=== PATIENT | male | born 1980 | race Caucasian/White ===

== ENCOUNTER 2017-09-09 10:10 | Emergency (ER) | payer BC ==
[2017-09-09] MEDS ORDERED: Aspirin 81 MG Tab.Chew ONE (10:20)
[2017-09-09] MEDS ORDERED: Sodium Chloride 0.9% 10 ML Syringe FLUSH PRN (10:23)
[2017-09-09] MEDS ORDERED: Nitroglycerin 0.4 MG Tab.SL ONE (10:24)
--- NOTE | 2017-09-09 10:26 | EDM.PDOC ---
ED HPI GENERAL MEDICAL PROBLEM - General Chief Complaint: Chest Pain Stated Complaint: CHEST PAIN Time Seen by Provider: 09/09/17 10:20 Source of Information: Reports: Patient, RN Notes Reviewed History Limitations: Reports: No Limitations - History of Present Illness INITIAL COMMENTS - FREE TEXT/NARRATIVE: 37-year-old gentleman presents to emergency department today complaint of chest pain, he states the pain started early today sudden onset he has no cardiac history himself remote history with his grandfather, no tobacco use he feels short of breath no nausea no diaphoresis Chest Pain Score (Numeric/FACES): 5 - Related Data Allergies Allergy/AdvReac Type Severity Reaction Status Date / Time No Known Allergies Allergy Verified 09/18/13 18:21 Home Meds: Home Meds Azelastine [Astelin Nasal Soln] 1 spray TOP DAILY 09/18/13 [History] Cetirizine [ZyrTEC] 10 mg PO DAILY 09/09/17 [History] Fluticasone Propionate [Flonase] 1 spray FLORENCIA ASDIRECTED 09/09/17 [History] Past Medical History - Past Health History Medical/Surgical History: Denies Medical/Surgical History Social & Family History - Tobacco Use Smoking Status *Q: Never Smoker - Alcohol Use Days Per Week of Alcohol Use: 0 - Recreational Drug Use Recreational Drug Use: No ED ROS GENERAL - Review of Systems Review Of Systems: See Below Constitutional: Reports: No Symptoms HEENT: Reports: No Symptoms Respiratory: Reports: Shortness of Breath Cardiovascular: Reports: Chest Pain GI/Abdominal: Reports: No Symptoms : Reports: No Symptoms Musculoskeletal: Reports: No Symptoms Skin: Reports: No Symptoms Neurological: Reports: No Symptoms ED EXAM, GENERAL - Physical Exam Exam: See Below Free Text/Narrative:: General: Male moderate discomfort secondary to pain, alert and oriented x3 HEENT : head is atraumatic normocephalic, eyes pupils equal round reactive to light, sclera clear no conjunctivitis appreciated. Ears tympanic membranes clear and urena landmarks and light reflex are present bilaterally canals are clear. Nose no septal deviation, nares are clear, no blood present. Mouth mucosa is moist and pink no erythema or exudate noted in soft palate, tongue is midline uvula is midline, dentition is intact. Neck: Supple no thyromegaly no tracheal deviation. Nodes: Cervical nodes subclavicular nodes nontender no palpable lymphadenopathy noted. Lungs: clear to auscultation bilaterally with symmetrical respirations, no adventitious noise appreciated. CV: Regular rate and rhythm S1 and S2 appreciated no murmurs rubs or gallops noted. Abdomen: Soft, nontender, no palpable masses or organomegaly appreciated, no distention no guarding bowel sounds are present, . Neuro: Cranial nerves II through XII grossly intact Skin: Warm and dry, intact Extremities: No lower extremity edema appreciated, pedal pulse is +2. Course - Vital Signs Last Recorded V/S: Last Vital Signs Temp 98.1 F 09/09/17 10:29 Pulse 70 09/09/17 12:15 Resp 12 09/09/17 12:15 BP 135/79 09/09/17 12:15 Pulse Ox 99 09/09/17 12:15 - Orders/Labs/Meds Orders: Active Orders 24 hr Category Date Time Status Cardiac Monitoring [RC] .As Directed Care 09/09/17 10:23 Active EKG Documentation Completion [RC] ASDIRECTED Care 09/09/17 10:24 Active Peripheral IV Care [RC] . DIRECTED Care 09/09/17 10:24 Active Sodium Chloride 0.9% [Saline Flush] Med 09/09/17 10:23 Active 10 ml FLUSH ASDIRECTED PRN Peripheral IV Insertion Adult [OM.PC] Stat Oth 09/09/17 10:23 Ordered Saline Lock Insert [OM.PC] Stat Oth 09/09/17 10:23 Ordered EKG 12 Lead [EK] Stat Ther 09/09/17 10:23 Ordered Medication Orders Sodium Chloride (Saline Flush) 10 ml FLUSH ASDIRECTED PRN PRN Reason: Keep Vein Open Last Admin: 09/09/17 10:28 Dose: 10 ml Labs: Laboratory Tests 09/09/17 09/09/17 09/09/17 Range/Units 10:28 10:28 12:30 WBC 6.9 (4.5-11.0) K/uL RBC 5.44 (4.30-5.90) M/uL Hgb 16.4 H (12.0-15.0) g/dL Hct 47.0 (40.0-54.0) % MCV 86 (80-98) fL MCH 30 (27-31) pg MCHC 35 (32-36) % Plt Count 230 (150-400) K/uL Neut % (Auto) 67 H (36-66) % Lymph % (Auto) 20 L (24-44) % [place] % (Auto) 11 H (2-6) % Eos % (Auto) 2 (2-4) % Baso % (Auto) 1 (0-1) % Sodium 140 (140-148) mmol/L Potassium 3.5 L (3.6-5.2) mmol/L Chloride 104 (100-108) mmol/L Carbon Dioxide 22 (21-32) mmol/L Anion Gap 17.5 H (5.0-14.0) mmol/L BUN 21 H (7-18) mg/dL Creatinine 1.1 (0.8-1.3) mg/dL Est Cr Clr Drug Dosing 101.89 mL/min Estimated GFR (MDRD) > 60 (>60) Glucose 156 H (74-106) mg/dL Calcium 9.6 (8.5-10.1) mg/dL Total Bilirubin 0.5 (0.2-1.0) mg/dL AST 30 (15-37) U/L ALT 63 (12-78) U/L Alkaline Phosphatase 89 (46-116) U/L CK-MB (CK-2) 0.9 (0-3.6) mg/mL Troponin I < 0.017 < 0.017 (0.000-0.056) ng/mL Total Protein 7.4 (6.4-8.2) g/dL Albumin 4.5 (3.4-5.0) g/dL Globulin 2.9 (2.3-3.5) g/dL Albumin/Globulin Ratio 1.6 (1.2-2.2) Meds: Medications Generic Name Dose Route Start Last Admin Trade Name Freq PRN Reason Stop Dose Admin Sodium Chloride 10 ml 09/09/17 10:23 09/09/17 10:28 Saline Flush FLUSH 10 ml ASDIRECTED PRN Administration Keep Vein Open Discontinued Medications Generic Name Dose Route Start Last Admin Trade Name Freq PRN Reason Stop Dose Admin Aspirin Confirm 09/09/17 10:20 09/09/17 11:00 Aspirin Administered 09/09/17 10:21 Not Given Dose 324 mg .ROUTE .STK-MED ONE Aspirin 324 mg 09/09/17 10:59 09/09/17 11:01 Aspirin PO 09/09/17 11:00 324 mg ONETIME ONE Administration Nitroglycerin Confirm 09/09/17 10:24 09/09/17 11:00 Nitrostat Administered 09/09/17 10:25 Not Given Dose 0.4 mg .ROUTE .STK-MED ONE Nitroglycerin 0.4 mg 09/09/17 10:59 09/09/17 11:01 Nitrostat SL 09/09/17 11:00 0.4 mg ONETIME ONE Administration Departure - Departure Time of Disposition: 13:35 Disposition: Home, Self-Care 01 Condition: Good Clinical Impression: Atypical chest pain Referrals: PCP,None [Primary Care Provider] - Forms: ED Department Discharge Additional Instructions: Use Ativan as needed when symptoms arise, Please followup with your primary care provider in 3-5 days if not better, please call return to the emergency department with worsening of symptoms. - My Orders Last 24 Hours: My Active Orders 09/09/17 10:23 Cardiac Monitoring [RC] .As Directed Sodium Chloride 0.9% [Saline Flush] 10 ml FLUSH ASDIRECTED PRN Peripheral IV Insertion Adult [OM.PC] Stat Saline Lock Insert [OM.PC] Stat EKG 12 Lead [EK] Stat 09/09/17 10:24 EKG Documentation Completion [RC] ASDIRECTED Peripheral IV Care [RC] . DIRECTED - Assessment/Plan Last 24 Hours: My Active Orders 09/09/17 10:23 Cardiac Monitoring [RC] .As Directed Sodium Chloride 0.9% [Saline Flush] 10 ml FLUSH ASDIRECTED PRN Peripheral IV Insertion Adult [OM.PC] Stat Saline Lock Insert [OM.PC] Stat EKG 12 Lead [EK] Stat 09/09/17 10:24 EKG Documentation Completion [RC] ASDIRECTED Peripheral IV Care [RC] . DIRECTED Plan: Assessment Acuity = acute Site and laterality = probable panic attack Etiology = secondary to stress at work Manifestations = none Location of injury = Home Lab values = CBC, CMP, troponin negative 2 initial EKG does demonstrate global ST changes concern for pericarditis and borderline left axis deviation no old EKGs available for comparison, chest x-ray negative per radiology Plan I did review lab work EKG results with him he had significant relief with 1 nitroglycerin felt he really has returned to normal baseline we did observe him in the emergency department for several hours, no change on the monitor was noted he remained asymptomatic he did admit to being under a lot of stress at work, therefore I'm suspicious this was a panic attack, prescription written for Ativan 1 mg by mouth twice a day when necessary #10 I'm follow-up with his primary care in 5-7 days for reevaluation This note was dictated using [employer] voice recognition software please call with any questions on syntax or junior.
--- NOTE | 2017-09-09 10:47 | CR ---
Chest 1V Frontal HISTORY: Chest Pain COMPARISON: None FINDINGS: Portable chest, 1027 hours Lungs appear clear and normally aerated. Cardiomediastinal silhouette is within normal limits. No vas cular redistribution or pleural fluid can be seen. Bony structures and soft tissues are unremarkable. IMPRESSION: No acute chest abnormality identified.
[2017-09-09] MEDS ORDERED: Aspirin 81 MG Tab.Chew PO ONE (10:59)
[2017-09-09] MEDS ORDERED: Nitroglycerin 0.4 MG Tab.SL SL ONE (10:59)
== END 2017-09-09 13:46 | disposition home or self-care (01) ==
LOC: JP.ED 10:10
DX: R07.89 Other chest pain (principal); Z79.899 Other long term (current) drug therapy
CPT/HCPCS: 36415; 71045; 80053; 82553; 84484; 85025; 93005; 99285; A9270; J7050

== ENCOUNTER 2018-12-17 10:48 | Emergency (ER) | payer BC ==
--- NOTE | 2018-12-17 11:44 | EDM.PDOC ---
ED HPI GENERAL MEDICAL PROBLEM - General Chief Complaint: Abdominal Pain Stated Complaint: ILL HAD X-RAY Time Seen by Provider: 12/17/18 11:15 Source of Information: Reports: Patient History Limitations: Reports: No Limitations - History of Present Illness INITIAL COMMENTS - FREE TEXT/NARRATIVE: 38-year-old healthy male with left lower quadrant pain for the past 2 days. Increasing in intensity since 3 AM, developed peritoneal irritation. Also a low- grade fever. Normal bowel movement this morning did not change his pain. No urinary symptoms, no history of abdominal surgeries. He was evaluated at the clinic initially, labs look reassuring, white count normal, two-view x-ray normal but his pain was worsening so he was sent to the emergency room for further evaluation, namely a CT scan. Patient arrived uncomfortable with peritoneal irritation in the lower abdomen, felt better sitting up. Location: Reports: Abdomen Worsens with: Reports: Movement Associated Symptoms: Denies: Chest Pain, Cough, Fever/Chills, Malaise, Nausea/ Vomiting, Shortness of Breath, Weakness Left Lower Abdomen Pain Score (Numeric/FACES): 7 - Related Data Allergies Allergy/AdvReac Type Severity Reaction Status Date / Time No Known Allergies Allergy Verified 12/17/18 11:16 Home Meds: Home Meds Azelastine [Astelin Nasal Soln] 1 spray TOP DAILY 09/18/13 [History] Cetirizine [ZyrTEC] 10 mg PO DAILY 09/09/17 [History] Fluticasone Propionate [Flonase] 1 spray FLORENCIA ASDIRECTED 09/09/17 [History] Escitalopram Oxalate 20 mg PO DAILY 12/17/18 [History] traZODone HCl [Trazodone HCl] 50 mg PO BEDTIME 12/17/18 [History] Past Medical History - Past Health History Medical/Surgical History: Denies Medical/Surgical History HEENT History: Reports: Allergic Rhinitis Social & Family History - Tobacco Use Smoking Status *Q: Never Smoker - Caffeine Use Caffeine Use: Reports: Soda - Recreational Drug Use Recreational Drug Use: No ED ROS GENERAL - Review of Systems Review Of Systems: See Below Constitutional: Denies: Fever, Chills HEENT: Reports: No Symptoms Respiratory: Reports: No Symptoms Cardiovascular: Reports: Dyspnea on Exertion GI/Abdominal: Reports: Abdominal Pain. Denies: Constipation, Diarrhea, Vomiting : Reports: No Symptoms Skin: Reports: No Symptoms ED EXAM, GI/ABD - Physical Exam Exam: See Below Exam Limited By: No Limitations General Appearance: Alert, No Apparent Distress (Patient looks uncomfortable but not distressed) Eyes: Bilateral: Normal Appearance (No jaundice) Head: Atraumatic Respiratory/Chest: No Respiratory Distress, Lungs Clear Cardiovascular: Regular Rate, Rhythm GI/Abdominal Exam: Soft, Guarding (Significant guarding and rebound tenderness is present in the left lower quadrant), Rebound Course - Vital Signs Last Recorded V/S: Last Vital Signs Temp 99.3 F 12/17/18 11:10 Pulse 67 12/17/18 11:06 Resp 17 12/17/18 11:10 BP 139/73 12/17/18 11:10 Pulse Ox 96 12/17/18 11:10 - Orders/Labs/Meds Meds: Medications Discontinued Medications Generic Name Dose Route Start Last Admin Trade Name Freq PRN Reason Stop Dose Admin Ketorolac Tromethamine 60 mg 12/17/18 13:19 12/17/18 13:27 Toradol IM 12/17/18 13:20 60 mg ONETIME ONE Administration - Re-Assessments/Exams Free Text/Narrative Re-Assessment/Exam: 12/17/18 11:43 Clinic records and laboratory reviewed. Patient was sent for a abdomen and pelvis CT scan without contrast. 12/17/18 13:09 CT confirmed likely epiploic appendigitis in the left lower quadrant. Patient was given 60 mg of IM Toradol. He was discharged and encouraged to take an anti- inflammatory on a regular basis for the next several days and increase activity as tolerated. Departure - Departure Time of Disposition: 13:34 Disposition: Home, Self-Care 01 Condition: Good Clinical Impression: Abdominal pain Qualifiers: Abdominal location: left lower quadrant Qualified Code(s): R10.32 - Left lower quadrant pain - Discharge Information Instructions: Abdominal Pain, Adult, [id number] Referrals: PCP,None [Primary Care Provider] - Forms: ED Department Discharge Care Plan Goals: Increase activity as tolerated, diet as tolerated, and a regular dose of anti- inflammatory will be beneficial. Return for reevaluation if fever spikes, persistent nausea and vomiting, or increased pain.
--- NOTE | 2018-12-17 12:53 | CRLCT ---
INDICATION: Left lower quadrant abdominal pain. TECHNIQUE: Noncontrast CT scan of the abdomen and pelvis. FINDINGS: The lung bases are unremarkable. No focal abnormalities identified in the visualized portions of the liver, spleen, pancreas, adrenal glands, and kidneys. No hydronephrosis. No uroliths. Fatty inflammatory changes anterior to the distal portion of the descending colon. The GI tract is incompletely distended but shows no gross abnormalities. The stomach and GE junction are not well assessed. Normal appendix. No retroperitoneal, pelvic sidewall, or mesenteric adenopathy. IMPRESSION: Fatty inflammatory changes anterior to the distal portion of the descending colon likely represents epiploic appendagitis. Dictated by Luis A Barnett MD @ 12/17/2018 12:50:20 PM Dictated by: Luis A Barnett MD @ 12/17/2018 12:50:46 (Electronically Signed)
[2018-12-17] MEDS ORDERED: Ketorolac 60 MG/2 ML SDV IM ONE (13:19)
== END 2018-12-17 13:34 | disposition home or self-care (01) ==
LOC: JP.ED 10:48
DX: R10.32 Left lower quadrant pain (principal); Z79.899 Other long term (current) drug therapy
CPT/HCPCS: 74176; 96372; 99284; J1885

== ENCOUNTER 2024-01-10 12:33 | Emergency (ER) | payer BC ==
[2024-01-10] MEDS: Methocarbamol 500 MG Tab PO ONE (13:11)
[2024-01-10] MEDS: Ketorolac 30 MG/ML SDV IM ONE (13:11)
== END 2024-01-10 14:20 | disposition home or self-care (01) ==
LOC: JP.ED 12:33
DX: M25.511 Pain in right shoulder (principal)
CPT/HCPCS: 73030; 96372; 99283; A9270; J1885